=== PATIENT | female | born 1980 | race African-American/Black ===

== ENCOUNTER 2020-09-13 09:42 | Day surgery (SDC) | payer OTHER, SELFPAY ==
--- NOTE | 2020-09-13 | FL_ITS ---
EXAMINATION: Fluoroscopy-guided LUMBAR PUNCTURE CLINICAL INFORMATION: Pseudotumor cerebri COMPARISON: None TECHNIQUE: Following explaining fluoroscopy-guided lumbar puncture procedure, benefits and risk, patient was placed prone on fluoroscopy table and low back area was cleaned and draped in usual sterile manner. 1% lidocaine was injected overlying the L4-L5 disc level. A 20-gauge 6 inch long needle was inserted from a left parahilar approach intrathecally. After observing CSF return following removal of stylet, patient was quickly placed in left lateral decubitus view and opening CSF pressure was obtained. CSF fluid was then collected in 4 test tubes. A closing CSF pressure was obtained. Stylet was reintroduced and needle withdrawn. Patient tolerated procedure extremely well. FINDINGS: On a single image obtained under fluoroscopy there is maintained vertebral heights, alignment and disc heights. There is calcification seen across L3 vertebra. The opening CSF pressure measured 25.1 cm/water. Approximately 15.5 mL of clear CSF fluid was removed and sent to lab as per referring physician's orders. The closing pressure was 9.5 cm of water.. FLUOROSCOPY TIME: 0.4 minutes DOSE AREA PRODUCT: 8.414 uGy-m2 (microgray-meter squared) FL/FL guided lumbar puncture LP IMPRESSION: Successful fluoroscopy-guided L4-L5 lumbar puncture performed.
[2020-09-13 09:45] VITALS: BMI 32.1
[2020-09-13 10:17] LABS: Neutrophils Absolute Auto 5.5 X10*3/uL (2.0-8.3); White Blood Count 8.2 X10*3/uL (4.8-10.8)
[2020-09-13 10:26] LABS: INTERNATIONAL NORM RATIO 1.1 (0.9-1.1); Prothrombin Time 12.6 SEC (10.8-13.0)
[2020-09-13 10:29] LABS: Partial Thromboplastin Time 28.6 SEC (24.1-38.0)
[2020-09-13 12:11] VITALS: BP 106/48; PULSE 60; RESP 20; O2SAT 100
[2020-09-13 12:41] VITALS: BP 106/70; PULSE 65; RESP 16; TEMP 36.7
[2020-09-13 13:11] VITALS: BP 98/63; PULSE 59; RESP 16; TEMP 37.2; O2SAT 100
[2020-09-13 13:27] LABS: CSF Appearance Clear, Colorless; Glucose CSF 51 mg/dL; Total Protein CSF 30.1 mg/dL (15-45)
[2020-09-13 13:28] LABS: CSF Tube # 3
[2020-09-13] MEDS: oxyCODONE HCl Immed Release 5 MG TABLET PO (13:46)
[2020-09-13 13:58] LABS: Appearance CSF CLEAR; CSF Tube # 4
[2020-09-13 13:59] LABS: Color CSF COLORLESS; Red Blood Cell CSF 0 MM*3; White Blood Cell CSF 0 MM*3
[2020-09-13 14:06] VITALS: BP 90/59; PULSE 73; RESP 16; O2SAT 100
[2020-09-13 15:00] VITALS: BP 97/55; PULSE 72; RESP 18; O2SAT 100
== END 2020-09-13 15:13 | disposition home or self-care (01) ==
PROVIDERS: Radiology Diagnostic Radiology; Visit Provider Psychiatry & Neurology Neurology
PROC: 009U3ZZ Drainage of Spinal Canal, Percutaneous Approach (ICD-10-PCS; CPT 62270; principal; 2020-09-13 11:00)
DX: G93.2 Benign intracranial hypertension (principal); G43.909 Migraine, unspecified, not intractable, without status migrainosus; Z79.899 Other long term (current) drug therapy; Z88.0 Allergy status to penicillin; Z88.8 Allergy status to other drugs, medicaments and biological substances
CPT/HCPCS: 36415; 62328; 82945; 84157; 85048; 85610; 85730; 87015; 87070; 87205; 89051

== ENCOUNTER 2020-10-06 16:25 | Outpatient (REF) | payer OTHER, SELFPAY ==
--- NOTE | 2020-10-06 | CT_ITS ---
EXAMINATION: CT HEAD WITHOUT CONTRAST CLINICAL INFORMATION: Benign intracranial hypertension. Pseudotumor. COMPARISON: Fluoroscopic guided lumbar puncture 09/13/2020 TECHNIQUE: Contiguous axial imaging was performed from the skull base to vertex without intravenous administration of contrast. This CT examination was performed using dose optimization techniques as appropriate, variously including the following: *Automated exposure control *Adjustment of mA and/or kV according to patient size (this includes techniques or standardized protocols for targeted exams where dose is matched to indication/reason for exam; i.e. extremities or head) *Use of iterative reconstruction technique DLP: 746 mGy-cm FINDINGS: No intracranial hemorrhage, tumors or infarcts are noted. The ventricles and sulci are normal in size and configuration and no abnormal extra-axial fluid collections are visualized. The cervical medullary junction cerebellar tonsils are normal in configuration. The orbits and globes are grossly normal in appearance. No gross deformation of the globes is visualized. An empty sella configuration of the pituitary is noted with SI narrowing of the pituitary to a cranial caudal width of 2 mm and mild convex inward configuration of the pituitary. No abnormal enlargement of the sella is visualized. No significant opacification of the visualized paranasal sinuses, mastoid air cells and middle ear cavities is identified. CT/CT head/brain wo con IMPRESSION: Narrowing of the SI dimension of the pituitary to a maximum craniocaudal dimension of 2 mm. 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 This finding is a frequently encountered asymptomatic anatomic variation but may also be secondary to chronic intrarenal hypertension. No additional findings to correlate with the given history of benign intracranial hypertension. Normal ventricular configuration. Normal configuration of the cervicomedullary tonsils.
== END 2020-10-06 16:26 | disposition home or self-care (01) ==
LOC: HO.CT 16:25
PROVIDERS: Visit Provider Psychiatry & Neurology Neurology
DX: G93.2 Benign intracranial hypertension (principal)
CPT/HCPCS: 70450

== ENCOUNTER 2020-10-14 11:21 | Emergency (ER) | payer OTHER, SELFPAY ==
--- NOTE | 2020-10-14 11:36 | XR_ITS ---
EXAMINATION: XR CHEST CLINICAL INFORMATION: Asthma exacerbation COMPARISON: None TECHNIQUE: Frontal view of the chest was obtained. FINDINGS: Cardiac silhouette is normal in size. The lungs are adequately aerated. There is no lobar consolidation. No pleural effusion or pneumothorax. XR/XR chest 1V IMPRESSION: No acute pulmonary pathology.
[2020-10-14 11:40] VITALS: BP 157/98; PULSE 89; RESP 24; TEMP 36.8; O2SAT 98; BMI 32.5
--- NOTE | 2020-10-14 11:44 | ED_ITS ---
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 Reports that she did not have any symptoms prior to entering the client's house this morning. Reports that she was tested for COVID 2 days ago was negative. Denies any fevers, chills, body aches, headaches, dizziness, nausea/vomiting, chest pain, sputum production, any symptoms, palpitations, extremity swelling or any other symptoms complaints or concerns at this time. Related Data Previous Rx's Medication Instructions Recorded albuterol sulfate 0.63 mg INHALATION QID PRN #75 ml 10/14/20 albuterol sulfate 1 inh INHALATION QID PRN #8.5 g 10/14/20 azithromycin See Rx Instructions .ROUTE 10/14/20 .COMPLEX #6 tab prednisone 40 mg PO DAILY 5 Days #10 tab 10/14/20 Allergies Allergy/AdvReac Type Severity Reaction Status Date / Time codeine [CODEINE] Allergy Unknown UNKNOWN Verified 09/13/20 09:57 montelukast [From SINGULAIR] Allergy Unknown HIVES Verified 09/13/20 09:57 oxcarbazepine Allergy Unknown UNKNOWN Verified 09/13/20 09:57 [From TRILEPTAL] promethazine [From PHENERGAN] Allergy Unknown UNKNOWN Verified 09/13/20 09:57 ciprofloxacin [From CIPRO] AdvReac Unknown DIARRHEA Verified 09/13/20 09:55 Review of Systems Review of Systems: Constitutional : denies med noncompliance, no history of PE or DVT, denies recent travel, No Fever, No Chills ENT/Mouth : No Hoarseness, No sore throat, No Rhinorrhea Eyes: No Redness, No Discharge, No Vision Changes Cardiovascular : No Chest Pain, + SOB, No Dyspnea on Exertion, No Edema, no pleurisy, Respiratory : + Cough/wheezing, No Sputum, no stridor, no hemoptysis Gastrointestinal : No Nausea, No Vomiting, No Diarrhea, No abdominal Pain Genitourinary : No Dysuria, No Hematuria Musculoskeletal : No joint pain, No Myalgias Extremities: no extremity swelling /pain Skin : No rash, no itching, no swelling Neuro : No Weakness, No Numbness, No Headache Psych : No anxiety, depression Heme/Lymph: No Bruising, No Bleeding Endocrine : No Polyuria, No Polydipsia Yes all other systems are reviewed and are negative [facility] Past Medical History Attestation statement: The following information was validated with the patient. Social History Social History Advance Directives: No Advance Directives Information Provided: No Physical Exam 2 Vital Signs: Vital Signs: Last Vital Signs Temp 98.2 F 10/14/20 11:40 Pulse 72 10/14/20 12:00 Resp 24 H 10/14/20 11:40 BP 157/98 H 10/14/20 11:40 Pulse Ox 98 10/14/20 11:40 Body Mass Index 32.5 vital signs have been reviewed as normal and appeared to be correct. Blood pressure normal. Heart rate normal. Respiration rate normal. Temperature normal. Oxygen saturation normal. Appearance: Alert. Oriented X3. Moderate acute respiratory distress. Head: Normal external exam. Normocephalic. Atraumatic. Eyes: PERRLA. EOMI. Conjunctiva and sclera normal. Eyelids normal. ENT: EAC normal. TM's Normal. Pharynx normal. Uvula midline. Moist mucous membranes. No trismus noted. No drooling noted. No muffled voice noted. No tridpoding Neck: Normal inspection. Neck supple. FROM. No adenopathy. Thyroid Normal. No meningeal signs. No neck mass noted. CVS: Normal heart rate and rhythm. Heart sound normal. No murmurs noted. Pulses normal throughout. Respiratory: + Moderate respiratory distress with inspiratory and expiratory wheezing throughout with decreased breath sounds and accessory muscle usage along with retractions. No stridor noted. No rales/rhonchi noted. Chest nontender. Back: Full range of motion noted. Skin: Skin warm and dry. Normal skin color. Normal skin turgor. No rashes/lesions/lacerations noted. Extremities: No lower extremity edema. Extremities exhibit normal range of motion. Extremities nontender. Neuro: Oriented X 3. No motor deficit. No sensory deficit. Reflexes normal. 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 - on exam patient is in moderate respiratory distress with inspiratory and expiratory wheezing throughout with decreased breath sounds with retractions and accessory muscle usage. No stridor/drooling or trismus noted. - Villalba: Labs, CXR, COVID/RSV/FLU swab. Provide an hour long breathing treatment, 125 mg of Solu-Medrol, 2 g of magnesium and a L of IV fluids and re-evaluate. Reevaluation(s) Reevaluation #1: - patient's blood sugar at 58 therefore she was given food and orange juice and it brought the blood sugar back into the 120s. She reports she has a history of hypoglycemia of unknown cause. Reports she did eat breakfast and some coffee. Otherwise all other labs are within normal limits. Chest x- ray within normal limits no evidence of pneumonia or any other acute processes. COVID/RSV/flu negative. Patient received the hour long breathing treatment reports she feels better. Will DC home with symptomatic treatment along with instructions return if any new or worsening symptoms and to follow up with primary care provider. Patient understands agrees the plan. Time: 14:17 [facility] - Asthma Differential Diagnosis Differential diagnosis: Likely Acute exacerbation, Status asthmaticus, Acute asthmatic bronchitis, Pneumonia and Pneumothorax Medical Records Attestation: I reviewed the patient's medical records. Lab Data Attestation: I reviewed the patient's lab results. Result diagrams: 10/14/20 11:44 10/14/20 11:44 Labs: Lab Results 10/14/20 10/14/20 10/14/20 Range/Units 11:44 11:44 11:44 WBC 6.4 (4.8-10.8) X10*3/uL RBC 4.26 (4.20-5.50) X10*6/uL Hgb 11.9 L (12.0-16.0) g/dl Hct 38.1 (37-47) % MCV 89.4 (80-98) fL MCH 27.9 (27.0-33.0) pg MCHC 31.2 (31.0-35.0) g/dl RDW 13.2 (11.0-16.0) % Plt Count 345 (160-400) X10*3/uL MPV 9.4 (9.4-12.3) fL Immature Gran % (Auto) 0.3 (0.0-0.4) % Neut % (Auto) 59.6 (45-73) % Lymph % (Auto) 28.8 (20-40) % [place] % (Auto) 5.0 (2-11) % Eos % (Auto) 5.2 H (0-4) % Baso % (Auto) 1.1 (0-2) % Lymph # (Auto) 1.8 (1.2-4.9) X10*3/uL [place] # (Auto) 0.3 (0.1-1.2) X10*3/uL Eos # (Auto) 0.3 (0.0-0.4) X10*3/uL Baso # (Auto) 0.1 (0.0-0.2) X10*3/uL Abs Immat Gran (auto) 0.02 (0.00-0.03) X10*3/uL Absolute Neuts (auto) 3.8 (2.0-8.3) X10*3/uL Absolute Nucleated RBC 0.000 (0.0-0.012) X10*3/uL Nucleated RBC % (auto) 0.0 (0.0-0.2) /100WBC Sodium 140 (135-145) mmol/L Potassium 4.0 (3.3-5.1) mmol/l Chloride 105 (96-108) mmol/L Carbon Dioxide 25 (22-29) mmol/L Anion Gap 14 (12-20) BUN 7 L (9-16) mg/dL Creatinine 0.69 (0.5-1.4) mg/dL Estim Creat Clear Calc 102.4 Estimated GFR > 60 POC Glucose (60-115) mg/dL Random Glucose 59 L* (60-115) mg/dL Calcium 9.3 (8.4-10.2) mg/dL Magnesium 1.9 (1.6-2.6) mg/dL Coronavirus (PCR) NEGATIVE (Negative) Influenza Type A (PCR) NEGATIVE (Negative) Influenza Type B (PCR) NEGATIVE (Negative) RSV RNA Qual (PCR) NEGATIVE (Negative) 10/14/20 Range/Units 13:33 WBC (4.8-10.8) X10*3/uL RBC (4.20-5.50) X10*6/uL Hgb (12.0-16.0) g/dl Hct (37-47) % MCV (80-98) fL MCH (27.0-33.0) pg MCHC (31.0-35.0) g/dl RDW (11.0-16.0) % Plt Count (160-400) X10*3/uL MPV (9.4-12.3) fL Immature Gran % (Auto) (0.0-0.4) % Neut % (Auto) (45-73) % Lymph % (Auto) (20-40) % [place] % (Auto) (2-11) % Eos % (Auto) (0-4) % Baso % (Auto) (0-2) % Lymph # (Auto) (1.2-4.9) X10*3/uL [place] # (Auto) (0.1-1.2) X10*3/uL Eos # (Auto) (0.0-0.4) X10*3/uL Baso # (Auto) (0.0-0.2) X10*3/uL Abs Immat Gran (auto) (0.00-0.03) X10*3/uL Absolute Neuts (auto) (2.0-8.3) X10*3/uL Absolute Nucleated RBC (0.0-0.012) X10*3/uL Nucleated RBC % (auto) (0.0-0.2) /100WBC Sodium (135-145) mmol/L Potassium (3.3-5.1) mmol/l Chloride (96-108) mmol/L Carbon Dioxide (22-29) mmol/L Anion Gap (12-20) BUN (9-16) mg/dL Creatinine (0.5-1.4) mg/dL Estim Creat Clear Calc Estimated GFR POC Glucose 129 H (60-115) mg/dL Random Glucose (60-115) mg/dL Calcium (8.4-10.2) mg/dL Magnesium (1.6-2.6) mg/dL Coronavirus (PCR) (Negative) Influenza Type A (PCR) (Negative) Influenza Type B (PCR) (Negative) RSV RNA Qual (PCR) (Negative) Imaging Data Chest x-ray: Attestation: I personally reviewed and interpreted this imaging study as follows: Radiologist's impression: FINDINGS: Cardiac silhouette is normal in size. The lungs are adequately aerated. There is no lobar consolidation. No pleural effusion or pneumothorax. XR/XR chest 1V IMPRESSION: No acute pulmonary pathology. Critical Care Time Critical Care Time Critical Care Time: Yes Total Critical Care Time: 60 Attestation: I personally attest to this time spent taking care of the patient Discharge Plan Discharge Clinical Impression: Hypoglycemia Asthma with acute exacerbation Qualifiers: Asthma severity: moderate Patient Disposition: Home, Self-Care Instructions: Asthma (ED), Bronchospasm (ED) Prescriptions: New azithromycin 250 mg tablet See Rx Instructions .ROUTE .COMPLEX Qty: 6 RF: 0 prednisone 20 mg tablet 40 mg PO DAILY 5 Days Qty: 10 RF: 0 albuterol sulfate 90 mcg/actuation HFA aerosol inhaler 1 inh inhalation QID PRN (Reason: shortness of breath or wheezing) Qty: 8.5 RF: 0 albuterol sulfate 0.63 mg/3 mL solution for nebulization 0.63 mg inhalation QID PRN (Reason: shortness of breath or wheezing) Qty: 75 RF: 0 Referrals: Zaki Reyes MD [Primary Care Provider] - 2 days Stand Alone Forms: Work/School Release Print Language: Romansh
[2020-10-14 11:50] LABS: MANUAL DIFF FLAG NO
[2020-10-14 11:51] LABS: Basophils Absolute Auto 0.1 X10*3/uL (0.0-0.2); Basophils Percent Auto 1.1 % (0-2); Eosinophils Absolute Auto 0.3 X10*3/uL (0.0-0.4); Eosinophils Percent Auto 5.2 % (0-4); Hematocrit 38.1 % (37-47); Hemoglobin 11.9 g/dl (12.0-16.0); Imm Gran Abs Auto 0.02 X10*3/uL (0.00-0.03); Imm Gran Pct Auto 0.3 % (0.0-0.4); Lymphocytes Absolute Auto 1.8 X10*3/uL (1.2-4.9); Lymphocytes Percent Auto 28.8 % (20-40); Mean Corpuscular HGB Conc 31.2 g/dl (31.0-35.0); Mean Corpuscular Hemoglobin 27.9 pg (27.0-33.0); Mean Corpuscular Volume 89.4 fL (80-98); Mean Platelet Volume 9.4 fL (9.4-12.3); Monocytes Absolute Auto 0.3 X10*3/uL (0.1-1.2); Neutrophils Absolute Auto 3.8 X10*3/uL (2.0-8.3); Neutrophils Percent Auto 59.6 % (45-73); Platelet Count 345 X10*3/uL (160-400); Red Blood Count 4.26 X10*6/uL (4.20-5.50); Red Cell Distribution Width 13.2 % (11.0-16.0); White Blood Count 6.4 X10*3/uL (4.8-10.8)
[2020-10-14] MEDS: Magnesium Sulfate/H2O 2 GM/50 ML PIGGYBACK IV (11:54)
[2020-10-14] MEDS: methylPREDNISolone Sod Succ/PF 125 MG/2 ML VIAL IVPUSH (11:54)
[2020-10-14] MEDS: 0.9 % Sodium Chloride 1,000 ML 999 ML IVCONT (11:55)
[2020-10-14] MEDS: Albuterol Sulfate (0.083%) 2.5 MG/3 ML VIAL.NEB 10 MG INHALE (11:56)
[2020-10-14 12:00] VITALS: PULSE 72; O2SAT 100
[2020-10-14 12:25] LABS: Anion Gap 14 (12-20); Blood Urea Nitrogen 7 mg/dL (9-16); Calcium 9.3 mg/dL (8.4-10.2); Carbon Dioxide 25 mmol/L (22-29); Chloride 105 mmol/L (96-108); Creatinine Clr Calc Pharmacy 102.4; Estimated Glomerular Filt Rate > 60; Magnesium 1.9 mg/dL (1.6-2.6); Sodium 140 mmol/L (135-145)
[2020-10-14 12:34] LABS: Glucose Random 59 mg/dL (60-115)
[2020-10-14 12:55] LABS: Influenza A PCR NEGATIVE (Negative); Influenza B PCR NEGATIVE (Negative); Resp Syncy Virus RNA Qual PCR NEGATIVE (Negative); SARS COV2 PCR INHOUSE NEGATIVE (Negative)
[2020-10-14 13:37] LABS: Glucose, Whole Blood 129 mg/dL (60-115)
== END 2020-10-14 14:32 | disposition home or self-care (01) ==
PROVIDERS: Physician Assistant Medical; Emergency Provider Internal Medicine; PCP Pediatrics
DX: J45.901 Unspecified asthma with (acute) exacerbation (principal); R05 Cough; E16.2 Hypoglycemia, unspecified; Z20.822 Contact with and (suspected) exposure to COVID-19; Z79.899 Other long term (current) drug therapy
CPT/HCPCS: 0241U; 36415; 71045; 80048; 82947; 83735; 85025; 94640; 94644; 96361; 96365; 96375; 99283; 99291; J2930; J3475

== ENCOUNTER 2021-09-12 09:10 | Day surgery (SDC) | payer OTHER, SELFPAY ==
--- NOTE | ~2021-09-12 | FL_ITS ---
EXAMINATION: XR LUMBAR PUNCTURE CLINICAL INFORMATION: Pseudotumor cerebri COMPARISON: Previous exams most recent August 2020 TECHNIQUE/FINDINGS: Procedure and risks and benefits including bleeding, infection and headache were discussed with the patient and informed consent was obtained. The patient was positioned in the prone position. The back was prepped and draped in the usual sterile fashion. The skin and soft tissues were anesthetized with 1% lidocaine plain. Using fluoroscopic guidance and a 22-gauge spinal needle, right sided interlaminar access to the spinal fluid at the L4-L5 level was obtained. Opening pressure was 12 cm of water. 5.5 mL of clear CSF fluid was removed and sent for diagnostic specimen. FLUOROSCOPY TIME: 0.7 minutes DOSE AREA PRODUCT: 1.6 lora per centimeter squared. 1 saved fluoroscopic image. FL/FL guided lumbar puncture LP IMPRESSION: Fluoroscopy-guided lumbar puncture. Opening pressure was 12 cm of water. 5.5 mL of clear CSF fluid was removed for diagnostic studies.
[2021-09-12 09:37] VITALS: BP 126/81; PULSE 73; RESP 18; TEMP 36.6; O2SAT 97; BMI 36.8
[2021-09-12 09:51] LABS: MANUAL DIFF FLAG NO
[2021-09-12 09:58] LABS: Basophils Percent Auto 0.6 % (0-2); Eosinophils Absolute Auto 0.3 X10*3/uL (0.0-0.4); Eosinophils Percent Auto 4.3 % (0-4); Hematocrit 35.2 % (37.0-47.0); Hemoglobin 11.2 g/dl (12.0-16.0); Imm Gran Abs Auto 0.01 X10*3/uL (0.00-0.03); Imm Gran Pct Auto 0.2 % (0.0-0.4); Lymphocytes Absolute Auto 1.5 X10*3/uL (1.2-4.9); Lymphocytes Percent Auto 22.8 % (20-40); Mean Corpuscular HGB Conc 31.8 g/dl (31.0-35.0); Mean Corpuscular Hemoglobin 27.5 pg (27.0-33.0); Mean Corpuscular Volume 86.3 fL (80.0-98.0); Mean Platelet Volume 9.2 fL (9.4-12.3); Monocytes Absolute Auto 0.4 X10*3/uL (0.1-1.2); Monocytes Percent Auto 6.8 % (2-11); Neutrophils Absolute Auto 4.2 x10*3/uL (2.0-8.3); Neutrophils Percent Auto 65.3 % (45-73); Platelet Count 358 X10*3/uL (160-400); Red Blood Count 4.08 X10*6/uL (4.20-5.50); Red Cell Distribution Width 13.8 % (11.0-16.0); White Blood Count 6.4 X10*3/uL (4.8-10.8)
[2021-09-12 10:05] LABS: INTERNATIONAL NORM RATIO 1.1 (0.9-1.1); Prothrombin Time 12.4 SEC (9.9-13.0)
[2021-09-12 10:08] LABS: Partial Thromboplastin Time 33.7 SEC (24.1-38.0)
--- NOTE | 2021-09-12 11:50 | HO.RADPN ---
RADIOLOGY Narrative Narrative: LP performed using 22g spinal needle. Opening pressure 12 cm h20. 4 ml clear csf removed.
[2021-09-12 12:00] VITALS: BP 110/62; PULSE 69; RESP 17; TEMP 36.3; O2SAT 98
[2021-09-12] MEDS: Acetaminophen 325 MG TABLET 650 MG PO (12:06)
[2021-09-12 12:30] VITALS: BP 102/67; PULSE 77; RESP 17; O2SAT 100
[2021-09-12 12:42] LABS: CSF Appearance Clear, Colorless; CSF Tube # 2
[2021-09-12 12:43] LABS: Glucose CSF 52 mg/dL; Total Protein CSF 52.3 mg/dL (15-45)
[2021-09-12 13:00] VITALS: BP 108/65; PULSE 70; RESP 16; O2SAT 100
[2021-09-12 13:06] LABS: Appearance CSF CLEAR; CSF Tube # 4; Color CSF COLORLESS
[2021-09-12 13:07] LABS: Lymphocytes CSF 100 %; Red Blood Cell CSF 1 MM*3; White Blood Cell CSF 2 MM*3
[2021-09-12 13:30] VITALS: BP 107/6; PULSE 69; RESP 16; O2SAT 99
[2021-09-12 14:05] VITALS: BP 104/71; PULSE 81; RESP 17; TEMP 36.1; O2SAT 99
== END 2021-09-12 14:08 | disposition home or self-care (01) ==
PROVIDERS: Psychiatry & Neurology Neurology; Radiology Diagnostic Radiology; PCP Pediatrics; Visit Provider Radiology Diagnostic Radiology
PROC: 009U3ZZ Drainage of Spinal Canal, Percutaneous Approach (ICD-10-PCS; CPT 62270; principal; 2021-09-12 11:00)
DX: G93.2 Benign intracranial hypertension (principal); Z98.2 Presence of cerebrospinal fluid drainage device; G43.909 Migraine, unspecified, not intractable, without status migrainosus; Z88.8 Allergy status to other drugs, medicaments and biological substances; Z79.1 Long term (current) use of non-steroidal anti-inflammatories (NSAID); Z79.899 Other long term (current) drug therapy
CPT/HCPCS: 36415; 62328; 82945; 84157; 85025; 85610; 85730; 87015; 87070; 87205; 89051

== ENCOUNTER 2022-10-28 12:46 | Outpatient (REF) | payer OTHER, SELFPAY ==
--- NOTE | ~2022-10-28 | US_ITS ---
EXAMINATION: US EXTRACRANIAL CAROTID DUPLEX, BILATERAL CLINICAL INFORMATION: Migraine headaches. COMPARISON: None TECHNIQUE: Real-time ultrasound and Doppler techniques (integrating B-mode 2-D vascular images, Doppler spectral analysis and color-flow Doppler imaging) were utilized to interrogate the extracranial carotid arteries, the vertebral arteries and proximal subclavian arteries bilaterally. The degree of stenosis is determined by criteria similar to NASCET. FINDINGS: Right Side: 1. There is no atherosclerotic plaque seen in the bifurcation/proximal ICA region. 2. The common carotid artery PSV proximally is 119 cm/s and distally 78 cm/s. 3. The proximal internal carotid artery velocities are 106 cm/s systolic and 28 cm/s diastolic. 4. The proximal external carotid artery PSV is 107 cm/s. 5. The vertebral artery shows active flow. 6. The subclavian artery waveforms are normal. Left Side: 1. There is no atherosclerotic plaque seen in the bifurcation/proximal ICA region. 2. The common carotid artery PSV proximally is 119 cm/s and distally 86 cm/s. 3. The proximal internal carotid artery velocities are 93 cm/s systolic and 29 cm/s diastolic. 4. The proximal external carotid artery PSV is 79 cm/s. 5. The vertebral artery shows antegrade flow. 6. The subclavian artery waveforms are normal. US/US carotid duplex BI IMPRESSION: RIGHT: Normal right internal carotid artery without atherosclerotic plaque or hemodynamically significant stenosis. LEFT: Normal left internal carotid artery without atherosclerotic plaque or hemodynamically significant stenosis.
== END 2022-10-28 12:47 | disposition home or self-care (01) ==
LOC: HO.US 12:46
PROVIDERS: Visit Provider Psychiatry & Neurology Neurology
DX: G43.109 Migraine with aura, not intractable, without status migrainosus (principal)
CPT/HCPCS: 93880